=== PATIENT | female | born 1995 | race Native Hawaiian/Other Pacific Islander ===

== ENCOUNTER 2020-04-07 20:00 | Emergency (ER) | payer SELFPAY ==
[2020-04-07 20:23] VITALS: BP 110/65; PULSE 84; RESP 14; TEMP 36.4; O2SAT 100; BMI 28.5
[2020-04-07 20:32] VITALS: BP 116/54; PULSE 76; RESP 16; O2SAT 99
--- NOTE | 2020-04-07 20:38 | ED_ITS ---
HPI - Female Genitourinary General: Chief complaint: Urogenital-Female Stated complaint: 14 WKS PREG, HAVING COMPLICATIONS Time Seen by Provider: 04/07/20 20:37 Source: patient Mode of arrival: ambulatory Limitations: no limitations History of Present Illness: HPI Narrative: 24-year-old female comes in today with complaints of vaginal pressure and discomfort. Patient reports some discharge. Patient denies any blood in her vaginal discharge. Patient is on progesterone for concerns of low progesterone level to maintain . Patient is at approximately 14 weeks . Patient appears well. Patient appears in mild to no pain. Associated symptoms: Reports vaginal discharge Date of Last Menstrual Period: 01/03/20 Review of Systems General: Reports: 10 or more systems reviewed and unremarkable except in HPI and below : Reports: vaginal discharge [facility] Female Reproductive History: Date of last menstrual period: 01/03/20 Physical Exam Const: COMMON NORMALS: no acute distress and patient oriented x3 GENERAL APPEARANCE: cooperative HENMT: COMMON NORMALS: normocephalic and Normal external nose present HEAD & SCALP: normal to inspection and normocephalic NOSE: Normal external nose present MOUTH: Normal oral and palatal mucosa present Eye: GENERAL EYE: appearance normal, both eyes and all related structures Neck/C-Spine: COMMON NORMALS: full ROM Chest: COMMONS NORMALS: normal inspection of the chest Resp: COMMON NORMALS: normal respiratory effort EFFORT & INSPECTION: Yes able to speak in complete sentences Cardio: COMMON NORMALS: regular rate and regular rhythm RATE: regular rate RHYTHM: regular rhythm GI: COMMON NORMALS: non-tender : COMMON NORMALS: Yes no CVA tenderness, Yes normal appearance of the vagina and Yes normal appearance of the cervix BLADDER/KIDNEY EXAM: Yes no CVA tenderness Back/Pelvis: COMMON NORMALS: no CVA tenderness and thoracic and lumbar spine normal to inspection Extremity: COMMON NORMALS: normal to inspection Neuro: COMMON NORMALS: patient oriented x3 and moves all extremities Psych: COMMON NORMALS: mental status grossly normal and cooperative Skin: COMMON NORMALS: no rashes or lesions noted GENERAL SKIN EXAM: no rashes or lesions noted Course Vital Signs: Vital signs: Vital Signs Temperature 97.5 F L 04/07/20 20:23 Pulse Rate 73 04/07/20 22:32 Respiratory Rate 16 04/07/20 22:32 Blood Pressure 110/50 04/07/20 22:32 Pulse Oximetry 98 10/31/20 22:32 MDM - Female MDM Narrative: Medical decision making narrative: Patient comes in today for complaints of pelvic discomfort. Patient reports some vaginal discharge. Patient reports being that 14 weeks . Exam notes some mucus discharge on pelvic exam. Cervical os closed. Vital signs normal. Differential diagnosis includes but not limited to vaginitis, threatened miscarriage, round ligament pain. Ultrasound was normal showing a viable 14-week gestation fetus. Wet prep noted clue cells. Your labs were unremarkable. We will treat for bacterial vaginosis. Patient will follow up with [facility] for further treatment. Lab Data: Labs: Lab Results 04/07/20 04/07/20 04/07/20 Range/Units 20:58 21:16 21:40 WBC 9.2 (4.0-10.0) 10^3/ uL RBC 3.51 L (4.1-5.3) 10^6/u L Hgb 10.9 L (11.5-15.3) g/dL Hct 34.0 L (37.0-47.0) % MCV 96.9 (81-99) fL MCH 31.1 (28.0-34.0) pg MCHC 32.1 (30.0-36.0) g/dL RDW 12.9 (12.1-15.1) % Plt Count 197 (130-400) 10^3/c mm MPV 11.8 H (7.4-10.4) fL Neut % (Auto) 75.4 % Lymph % (Auto) 18.9 % [place] % (Auto) 4.0 % Eos % (Auto) 1.2 % Baso % (Auto) 0.4 % Neut # (Auto) 6.89 (1.8-7.7) 10^3/u L Lymph # (Auto) 1.7 (0.8-4.8) 10^3/u L [place] # (Auto) 0.4 (0.2-0.9) 10^3/u L Eos # (Auto) 0.1 (0.0-0.8) 10^3/u L Baso # (Auto) 0.0 (0.0-0.1) 10^3/u L Nucleated RBC % (a uto) 0 % Nucleated RBCs # 0.0 /100WBC HCG, Qual Positive H (Negative) Urine Color Yellow (Yellow) Urine Appearance Clear (CLEAR) Urine pH 7 (5-7) Ur Specific Gravit y 1.010 (1.005-1.030) Urine Protein Neg (Negative) Urine Glucose (UA) Norm (Normal) Urine Ketones 1+ H (Negative) Urine Blood Neg (Negative) Urine Nitrate Negative (Negative) Urine Bilirubin Neg (Negative) Urine Urobilinogen Norm (Negative) mg/dL Ur Leukocyte Melia ase Negative (Negative) Discharge Plan Discharge Patient Disposition: Home Clinical Impression: Bacterial vaginosis Condition: Stable Discharge Orders: Discharge Order (Routine); Ordered 04/07/20 Ordered By: Ankush Alberto Discharge Diet: Usual diet Discharge Activity: Increase activity as tolerated Patient Instructions: Bacterial Vaginosis (ED) Activity Restrictions/Additional Instructions: Drink plenty of fluids. Healthy diet and exercise. Follow-up with primary care as needed. Follow-up with [facility] for further treatment. Coding Level of Care Code ED [employer] for Chg Fwd Exam Comprehensive
--- NOTE | 2020-04-07 20:54 | USR_ITS ---
PROCEDURE INFORMATION: Exam: US After First Trimester, Transabdominal Exam date and time: 04/07/2020 10:17 PM Age: 24 years old Clinical indication: Lmp or gestational age (in weeks): [place] per patient 10/07/2020; Antepartum complications; Other: Pelvic pressure; ; Additional info: Vaginal pressure TECHNIQUE: Imaging protocol: Real-time transabdominal obstetrical ultrasound of the maternal pelvis and a second or third trimester with image documentation. COMPARISON: No relevant prior studies available. FINDINGS: Single living fetus in cephalic position. Posterior/fundal placenta. No visible placental abnormality on the provided images. Amniotic fluid volume within normal limits. Cervical length was estimated with transabdominal scanning, measuring approximately 3.5 cm. No definite cervical canal dilation or fluid on the provided images. Technologist notes that accurate head measurements could not be obtained at this time due to position. AC: , 8.1 cm. , 14 weeks, 4 days FL: , 1.6 cm. , 14 weeks, 5 days Composite age: 14 weeks, 5 days. heart activity documented by the technologist, 160 bpm. Evaluation of anatomy still limited by early gestation. Complete/detailed evaluation of anatomy was not performed/possible at this time. Followup/complete evaluation of anatomy recommended, as clinically appropriate. No visible maternal adnexal abnormality. The urinary bladder was not completely evaluated/imaged at this time. US/US OB <= 14 weeks fetus [id number] IMPRESSION: 1. Single living fetus, composite age: 14 weeks, 5 days. 2. Posterior/fundal placenta. No visible placental abnormality on the provided images. 3. Normal amniotic fluid volume. 4. Other details discussed above.
[2020-04-07 21:09] LABS: Add Urine Microscopic? NO
[2020-04-07 21:12] LABS: Bilirubin Urine Neg (Negative); Blood Urine Neg (Negative); Glucose Urine UA Norm (Normal); Ketones Urine 1+ (Negative); Leukocyte Esterase Urine Negative (Negative); Nitrate Urine Negative (Negative); Protein Urine Neg (Negative); Urine Appearance Clear (CLEAR); Urine Color Yellow (Yellow); Urobilinogen Urine Norm (Negative); pH Urine 7 (5-7)
[2020-04-07 21:57] LABS: HCG, Serum Qual Positive (Negative)
[2020-04-07 22:07] LABS: Basophils % 0.4 %; Eosinophils # 0.1 10^3/uL (0.0-0.8); Eosinophils % 1.2 %; Hemoglobin 10.9 g/dL (11.5-15.3); Lymphocytes # 1.7 10^3/uL (0.8-4.8); Lymphocytes % 18.9 %; Mean Corpuscular HGB Conc 32.1 g/dL (30.0-36.0); Mean Corpuscular Hemoglobin 31.1 pg (28.0-34.0); Mean Corpuscular Volume 96.9 fL (81-99); Mean Platelet Volume 11.8 fL (7.4-10.4); Monocytes # 0.4 10^3/uL (0.2-0.9); Neutrophils # 6.89 10^3/uL (1.8-7.7); Neutrophils % 75.4 %; Nucleated Red Blood Cells % 0 %; Platelet Count 197 10^3/cmm (130-400); Red Blood Count 3.51 10^6/uL (4.1-5.3); Red Cell Distribution Width 12.9 % (12.1-15.1); White Blood Count 9.2 10^3/uL (4.0-10.0)
[2020-04-07 22:32] VITALS: BP 110/50; PULSE 73; RESP 16; O2SAT 98
[2020-04-07] MEDS: metroNIDAZOLE 500 MG Tablet 2000 MG PO (23:41)
[2020-04-07 23:43] VITALS: BP 110/50; PULSE 83; RESP 16; TEMP 36.8; O2SAT 98
== END 2020-04-07 23:43 | disposition home or self-care (01) ==
PROVIDERS: Emergency Provider Nurse Practitioner Family
DX: N76.0 Acute vaginitis (principal)
CPT/HCPCS: 12345; 76801; 81003; 84702; 84703; 85025; 87070; 87205; 87210; 87491; 87591; 99284

== ENCOUNTER → 2021-03-29 14:40 | Outpatient (BNVA) | payer SELFPAY | PROVIDERS: Visit Provider Nurse Practitioner Family | DX: R30.0 Dysuria (principal) | CPT/HCPCS: 81000 ==

== ENCOUNTER → 2021-04-22 13:12 | Outpatient (BNVA) | payer SELFPAY | PROVIDERS: Visit Provider Registered Nurse Neonatal Intensive Care | DX: Z20.2 Contact with and (suspected) exposure to infections with a predominantly sexual mode of transmission (principal); A60.09 Herpesviral infection of other urogenital tract | CPT/HCPCS: 87491; 87591; 87661 ==